=== PATIENT | male | born 1950 | race Caucasian/White ===

== ENCOUNTER → 2016-08-16 | Outpatient (CLI) | payer MEDICARE, OTHER | LOC: CT 13:57 | DX: R51 Headache (principal); G51.0 Bell's palsy | CPT/HCPCS: 70450 ==

== ENCOUNTER → 2017-02-18 | Outpatient (CLI) | payer MEDICARE, OTHER | LOC: HEART 5 01-15 11:00 | DX: G51.0 Bell's palsy (principal); I10 Essential (primary) hypertension ==